=== PATIENT | male | born 1950 | race Caucasian/White ===

== ENCOUNTER 2017-05-18 12:40 | Emergency (ER) | payer OTHER ==
[~2017-05-18] VITALS: Ht 172.1 cm; Wt 78.0 kg
[2017-05-18 12:42] VITALS: BP 140/92; PULSE 69; RESP 12; TEMP 98.4; O2SAT 99
[2017-05-18] MEDS ORDERED: FOLI400T PO (13:08)
[2017-05-18] MEDS ORDERED: METH2.5T PO (13:08)
[2017-05-18] MEDS ORDERED: OMEP20TA93 PO (13:08)
[2017-05-18] MEDS ORDERED: CODE30TA2 PO (13:57)
--- NOTE | 2017-05-18 13:57 | PD ---
HPI Chief Complaint: Edema Time Seen by Provider: 13:46 Travel History International Travel<30 days: No Contact w/Intl Traveler<30days: No Traveled to known affect area: No History of Present Illness H[facility] is [facility] and has long standing history of rheumatoid arthritis. over last two day flare up of right joint pain to right hand wrist area...c/w previous flareups, denies any fever, skin discoloration or any complaints of nausea/weakness/body aches. patient only has pain to his joint/hands today PFSH Social History Alcohol Use: Yes Tobacco Use: No Allergies-Medications (Allergen,Severity, Reaction): Coded Allergies: trazodone (Verified Allergy, Severe, 05/18/17) Uncoded Allergies: sodium phenotol (Allergy, Severe, 05/18/17) Reported Meds & Prescriptions Reported Meds & Active Scripts Active Reported Omeprazole 20 Mg Tab 20 Mg PO BID Folic Acid 0.4 Mg Tab 400 Mcg PO DAILY Methotrexate 2.5 Mg Tab 2.5 Mg PO Q7D PRN Review of Systems Except as stated in HPI: all other systems reviewed are Neg General / Constitutional: No: Fever Eyes: No: Visual changes HENT: No: Headaches Cardiovascular: No: Chest Pain or Discomfort Respiratory: No: Shortness of Breath Gastrointestinal: No: Abdominal Pain Genitourinary: No: Dysuria Musculoskeletal: Positive: Pain (joint pain) Skin: No Rash Neurologic: No: Weakness Psychiatric: No: Depression Endocrine: No: Polydipsia Hematologic/Lymphatic: No: Easy Bruising Physical Exam Narrative GENERAL: SKIN: Warm and dry. HEAD: Atraumatic. Normocephalic. EYES: Pupils equal and round. No scleral icterus. No injection or drainage. ENT: No nasal bleeding or discharge. Mucous membranes pink and moist. NECK: Trachea midline. No JVD. CARDIOVASCULAR: Regular rate and rhythm. RESPIRATORY: No accessory muscle use. Clear to auscultation. Breath sounds equal bilaterally. GASTROINTESTINAL: Abdomen soft, non-tender, nondistended. MUSCULOSKELETAL: Extremities without clubbing, cyanosis, or edema. No obvious deformities. noted nodules to pip and dip on bilateral hands, right hand more painful to open/close but no e/o cellulitis/edema or streaking NEUROLOGICAL: Awake and alert. No obvious cranial nerve deficits. Motor grossly within normal limits. Five out of 5 muscle strength in the arms and legs. Normal speech. PSYCHIATRIC: Appropriate mood and affect; insight and judgment normal. Data Data Last Documented VS Vital Signs Date Time Temp Pulse Resp B/P (MAP) Pulse Ox O2 Delivery O2 Flow Rate FiO2 05/18/17 13:28 18 99 Room Air 05/18/17 12:42 98.4 69 140/92 (108) MDM Medical Decision Making Medical Screen Exam Complete: Yes Emergency Medical Condition: Yes Medical Record Reviewed: Yes Differential Diagnosis cellulitis v rheumatoid arthritis flare v abscess v tenosynovitis Narrative Course upon evaluation it is fairly clear that there are no sausage digits, no e/o cellulitis, abscess or streaking to suggest abscess/tenosynovitis or abscess....patient is here for RA flare up Diagnosis Primary Impression: Rheumatoid arthritis flare Scripts Codeine-Acetaminophen (Codeine-Acetaminophen) 30-300 mg Tab 1 TAB PO Q4H Y for PAIN, #14 TAB 0 Refills Prov: Godfrey Harmon MD 05/18/17 Disposition: 01 DISCHARGE HOME Condition: Stable Godfrey Harmon MD May 18, 2017 13:57
[2017-05-18] MEDS ORDERED: KETOROLAC TROMETHAMINE 60 MG/2 ML (IM) VIAL IM ONE (14:00)
== END 2017-05-18 14:16 | disposition home or self-care (01) ==
LOC: NEPD 12:40
DX: M06.9 Rheumatoid arthritis, unspecified (principal)
CPT/HCPCS: 96372; 99284; J1885

== ENCOUNTER 2017-06-07 00:38 | Emergency (ER) | payer OTHER ==
[~2017-06-07] VITALS: Ht 170.2 cm; Wt 71.2 kg
[~2017-06-07 00:38] MED LIST: CODE30TA2 PO; FOLI400T PO; METH2.5T PO; OMEP20TA93 PO
[2017-06-07 00:39] VITALS: BP 130/90; PULSE 73; RESP 16; TEMP 98.4; O2SAT 100
[2017-06-07] MEDS ORDERED: TYLETAB34 PO (01:26)
[2017-06-07] MEDS ORDERED: KETOROLAC TROMETHAMINE 60 MG/2 ML (IM) VIAL IM ONE (01:30)
[2017-06-07] MEDS ORDERED: ACETAMINOPHEN/HYDROcodone 325 MG/5 MG TAB PO ONE (01:30)
--- NOTE | 2017-06-07 01:35 | PD ---
HPI Chief Complaint: Pain: Acute or Chronic Time Seen by Provider: 00:49 Travel History International Travel<30 days: No Contact w/Intl Traveler<30days: No Traveled to known affect area: No History of Present Illness HPI 67-year-old white male presents to emergency Department with complaints of exacerbation of his rheumatoid arthritis. Patient was seen here in the ER approximately 2 weeks ago. He states that he was given a shot of medication was help his pain. He was discharged home with a prescription. [facility] He was given a five-day course of prednisone which hasn't seemed to help. He presents again for another injection in more pain medication. He denies any recent illness. No fever chills, cough, congestion or shortness of breath. Pain is moderate. No alleviating or exacerbating activity. Taking 2.5 mg of methotrexate weekly. PFSH Past Medical History Narrative Medical Kidney stones, Rheumatoid arthritis Kidney Stones: Yes Musculoskeletal: Yes (RA) Tetanus Vaccination: > 5 Years Influenza Vaccination: No Past Surgical History Genitourinary Surgery: Yes (LITHOTRIPSY X3) Other Surgery: Yes (COLONOSCOPY) Social History Alcohol Use: No Tobacco Use: Yes (1ppd) Substance Use: No Allergies-Medications (Allergen,Severity, Reaction): Coded Allergies: trazodone (Verified Allergy, Severe, 06/07/17) Uncoded Allergies: sodium phenotol (Allergy, Severe, 05/18/17) Reported Meds & Prescriptions Reported Meds & Active Scripts Active Tylenol-Codeine #3 (Acetaminophen-Codeine) 300-30 mg Tab 1 Tab PO Q4H PRN Reported Folic Acid 0.4 Mg Tab 400 Mcg PO DAILY Methotrexate 2.5 Mg Tab 2.5 Mg PO Q7D PRN Review of Systems General / Constitutional: No: Fever Eyes: No: Visual changes HENT: No: Headaches Cardiovascular: No: Chest Pain or Discomfort Respiratory: No: Shortness of Breath Gastrointestinal: No: Abdominal Pain Genitourinary: No: Dysuria Musculoskeletal: Positive: Arthralgias, Limited ROM, Edema, Pain Skin: No Rash Neurologic: No: Weakness Psychiatric: No: Depression Endocrine: No: Polydipsia Hematologic/Lymphatic: No: Easy Bruising Physical Exam Narrative GENERAL: This is a well-nourished, well-developed patient, in no apparent distress. SKIN: No rashes, ecchymoses or lesions. Warm and dry. HEAD: Atraumatic. Normocephalic. EYES: PERRL, EOMI, no discharge or injection. No scleral icterus. EARS: Clear NOSE: Nasal turbinates appear normal. THROAT: Mucosa pink and moist. Airway patent. NECK: Trachea midline. supple, moves head freely. LUNGS: Clear to auscultation. CV: Regular in rhythm. ABDOMEN: Soft nontender. EXT: No clubbing cyanosis or edema. Patient has chronic deformities of rheumatoid arthritis Data Data Last Documented VS Vital Signs Date Time Temp Pulse Resp B/P (MAP) Pulse Ox O2 Delivery O2 Flow Rate FiO2 06/07/17 00:39 98.4 73 16 130/90 (103) 100 Room Air Orders Orders Ketorolac Inj (Toradol Inj) (06/07/17 01:30) Acetamin-Hydrocod 325-5 Mg (Darling 5-325 (06/07/17 01:30) Ed Discharge Order (06/07/17 01:26) [facility] Medical Decision Making Medical Screen Exam Complete: Yes Emergency Medical Condition: Yes Medical Record Reviewed: Yes Differential Diagnosis Differential diagnoses: Acute exacerbation of chronic pain, rheumatoid arthritis , gout, septic joint Narrative Course Patient has a acute exacerbation of his rheumatoid arthritis. Patient is given Toradol 60 mg IM. Prescription for Tylenol with codeine. Diagnosis Primary Impression: acute exacerbation of rheumatoid arthritis Patient Instructions: General Instructions Additional Instructions: Rest. Medications as directed. [facility] Med/Other Pt SpecificInfo: Prescription(s) given Scripts Acetaminophen-Codeine (Tylenol-Codeine #3) 300-30 mg Tab 1 TAB PO Q4H Y for PAIN, #30 TAB 0 Refills Prov: Wendy Tran DO 06/07/17 Disposition: 01 DISCHARGE HOME Condition: Stable Saul Joseph Jun 07, 2017 01:35
== END 2017-06-07 02:12 | disposition home or self-care (01) ==
LOC: NEPD 00:38
DX: M06.9 Rheumatoid arthritis, unspecified (principal); Z72.0 Tobacco use
CPT/HCPCS: 96372; 99284; J1885